=== PATIENT | female | born 2000 | race Two or more races ===

== ENCOUNTER 2018-04-20 15:30 | Inpatient (IN) | payer BC, OTHER ==
[~2018-04-20] VITALS: Ht 177.8 cm; Wt 68.0 kg
--- NOTE | 2018-04-20 16:00 | NUR ---
Pre-Admission Polisher Hand encounters pt in intake office. Pt is anxious and restless. Pt endorses using multiple substances the past 1.5 months after having been to [facility] to 12/2017. Pt states she is here for to go back to [facility]. Pt endorses occasional use of Benzodiazepines, ingesting 1 mg today and 1mg yesterday, last previous use 3 weeks ago. Pt endorses drinking 6 shots of Vodka 2 a week, last used 4 days ago. Endorses 30mg of Oxycodone 1 to 2 a week, last used 7.5mg, this am. Endorses the use of Cocaine, with ingestion of 3.0 grams over the past month, with 1.0 g consumed last evening. Pt also endorses use of LSD and Ecstasy last Monday evening. Pt will be admitted for medical management of withdrawal symptoms.
[2018-04-20] MEDS ORDERED: THIAMINE HCL 200 MG/2 ML VIAL IM ONE (16:45)
[2018-04-20] MEDS ORDERED: diphenhydrAMINE 50 MG CAPSULE PO PRN (16:45)
[2018-04-20] MEDS ORDERED: LORAZEPAM 1 MG TABLET PO PRN ×2 (16:45)
[2018-04-20] MEDS ORDERED: IBUPROFEN 600 MG TABLET PO PRN (16:45)
[2018-04-20] MEDS ORDERED: HYDROXYZINE PAMOATE 25 MG CAPSULE PO PRN (16:45)
[2018-04-20] MEDS ORDERED: ACETAMINOPHEN 325 MG TABLET PO PRN (16:45)
--- NOTE | 2018-04-20 17:05 | NUR ---
Admission Pt is admitted to unit for medical management of poly-substance withdrawals. Pt endorses occasional use of Benzodiazepines, ingesting 1 mg today and 1mg yesterday, last previous use 3 weeks ago. Pt endorses drinking 6 shots of Vodka 2 a week, last used 4 days ago. Endorses 30mg of Oxycodone 1 to 2 a week, last used 7.5mg, this am. Endorses the use of Cocaine(inhaled), with ingestion of 3.0 grams over the past month, with 1.0 g consumed last evening. Pt also endorses use of LSD and Ecstasy last Monday evening. Pt drug screen is positive for Benzodiazepines, Marijuana and Cocaine. Helix Coil Winder re-verified the amounts and frequency of all substances. Pt presents anxious, but cooperative and able to focus on task. Pt in no distress. No signs or symptoms associated with withdrawal evident. Pt states she went to [facility] eating disorder clinic in [place], where she then transitioned to [facility]. Pt originally lived in [facility] and then moved in with her dad. Pt left [place], where dad lived and transitioned to [place] where pt has been [employer] surfing. Pt states this is her second time trying to get sober. 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 Pt states, "lately I have been binging and purging, not restricting." Pt states she binges and purges 5 times a week. Pt has a history of intentional overdose at age 15, resulting in a seizure and a psychiatric hold of a minor. Pt has also been on 5149's as a n adult, the last for being a DTS in 11/2017. The other was previous to this was, " meth induced psychosis." Pt states, " I don't get any real withdrawal symptoms, you know trouble sleeping, anxiety and depression." Pt states she uses substances, "to pass the time." She states she wants to get sober, "because my life is unmanageable, I won't be happy this way for the rest of my life." Pt identifies relationships, "new relationships" for her triggers to relapse. Pt endorses a history of blacking out. Pt currently denies SI/HI or A/VH. Pt is calm and cooperative on admission interview. Pt has a linear thought process with clear speech pattern. Will continue to monitor, support and encourage according to plan of care. Addendum: 04/20/18 at 1834 by SYED COPPOLA RN VIANEY" VS on pre-assessment were as follows BP: 113/59 P: 94 R: 18 O2: 98% P: 0/10 Pt denies any PCP, psychologist or psychiatrist.
[2018-04-20 17:07] LABS: *URINE HCG, QUAL NEGATIVE (NEGATIVE)
[2018-04-20 17:10] LABS: BASOPHILS # (AUTO) 0.1 K/uL (0.0-8.0); BASOPHILS % (AUTO) 0.9 % (0.0-2.0); EOSINOPHILS # (AUTO) 0.6 K/uL (0.0-0.7); EOSINOPHILS % (AUTO) 7.2 % (0.0-7.0); HEMATOCRIT 41.5 % (31.2-41.9); HEMOGLOBIN 13.6 g/dL (10.9-14.3); LYMPHOCYTES # (AUTO) 2.8 K/uL (20.0-40.0); LYMPHOCYTES % (AUTO) 31.6 % (20.5-74.5); MEAN CORPUSCULAR HEMOGLOBIN 28.6 uug (24.7-32.8); MEAN CORPUSCULAR HGB CONC 33 g/dL (32.3-35.6); MEAN CORPUSCULAR VOLUME 87.6 fL (75.5-95.3); MONOCYTES # (AUTO) 0.8 K/uL (2.0-10.0); MONOCYTES % (AUTO) 9.2 % (0-11); NEUTROPHILS # (AUTO) 4.5 K/uL (1.8-8.9); NEUTROPHILS % (AUTO) 51.1 % (31.5-64.5); PLATELET COUNT (AUTO) 221 K/uL (179-408); RED BLOOD CELL COUNT(AUTO) 4.74 MIL/uL (3.63-4.92); WHITE BLOOD COUNT (AUTO) 8.9 K/uL (3.8-11.8)
[2018-04-20 17:20] LABS: ALANINE AMINOTRANSFERASE 26 U/L (14-59); ALKALINE PHOSPHATASE 68 U/L (50-136); ASPARTATE AMINOTRANSFERASE 17 U/L (15-37); BILIRUBIN,TOTAL 0.2 mg/dL (0.2-1.0); CARBON DIOXIDE 30 mmol/L (21-32); CHLORIDE 107 mmol/L (98-107); CREATININE 0.9 mg/dL (0.6-1.3); GLUCOSE 121 mg/dL (74-106); POTASSIUM 3.6 mmol/L (3.5-5.1); TOTAL PROTEIN, SERUM 7.5 g/dL (6.4-8.2); UREA NITROGEN, BLOOD 10 mg/dL (7-18)
[2018-04-20 17:26] LABS: ETHANOL < 3 MG/DL (0-0)
[2018-04-20 17:26] LABS: *AMPHETAMINE, URINE NEGATIVE (NEGATIVE); *BARBITURATE, URINE NEGATIVE (NEGATIVE); *CANNABINOID, URINE POSITIVE (NEGATIVE); *COCCAINE, URINE POSITIVE (NEGATIVE); *OPIATE, URINE NEGATIVE (NEGATIVE); *PHENCYCLIDINE SCREEN,URINE NEGATIVE (NEGATIVE)
--- NOTE | 2018-04-20 19:10 | NUR ---
End of Shift Manager Transmission admitted 17 year old female to [facility] this afternoon for poly-substance withdrawals. Pt endorses allergies to aloe vera and bee pollen. No PMH, with a PPH of depression, anxiety and eating DO. Pt presented with no evident signs or symptoms of withdrawals. No CIWA/COWS performed. Pt is calm and cooperative with a normal affect and depressed mood. Linear thought process with clear speech pattern. Bed in low position with wheels locked and side rails up x2.
--- NOTE | 2018-04-20 19:10 | NUR ---
End of Shift Coroner Forensic Technician admitted 17 year old female to [facility] this afternoon for poly-substance withdrawals. Pt endorses allergies to aloe vera and bee pollen. No PMH, with a PPH of depression, anxiety and eating DO. Pt presented with no evident signs or symptoms of withdrawals. No CIWA/COWS performed. Pt is calm and cooperative with a normal affect and depressed mood. Linear thought process with clear speech pattern. Bed in low position with wheels locked and side rails up x2.
[2018-04-20 20:00] VITALS: BP 90/44
--- NOTE | 2018-04-20 20:00 | NUR ---
Start of Shift Patient asleep on bed, arousable to name, AAOx4 and with flushed skin. Patient noted to have a blunted affect, poor memory and is delayed in responding to questions. Patient verbalized that her head feels heavy and wants to go back to sleep. Patient clarified that she drinks Vodka 3-4 times per week, consuming about 350-375 ml each time. Patient is avoiding eye contact at this time and with lack of motivation for discussion of plan of care. Fall, universal, seizure and safety precautions in place. Call light within reach. Latest COWS-6, CIWA-9. Will continue to monitor.
[2018-04-21] VITALS: BP_SYST 102; BP_SYST 96; BP_DIAS 53; BP_DIAS 62
[2018-04-21 04:00] VITALS: BP 96/62
--- NOTE | 2018-04-21 07:17 | NUR ---
End of Shift Patient continues to be drowsy, arousable and noted to be intermittently anxious. Patient observed to have flushed skin, with slight tremors and with intermittent nausea. Patient has blunted affect and is labile. Fall, universal, seizure and safety precautions in place. Call light within reach. Latest COWS-6, CIWA-7, slept for 11 hours. Endorsed to AM shift nurse for continuity of care.
--- NOTE | 2018-04-21 07:48 | NUR ---
Patient 17 y/o female admitted for medically supervised withdrawal of benzos, ETOH, opiates, cocaine, and marijuana. Her last COWS 6 and CIWA 7 at 2000. Pt presents with moderate anxiety, mild agitation, restless, flushed face, sweating and chills, fine tremors, head ache and stuffy nose. Pt has blunt and flat affect and depressed mood. Encouraged pt to attend group therapies/sessions to learn new coping skills to prevent relapse. Pt reports allergies to aloe vera and bee venom. FULL CODE. All safety precautions in place. Call light within reach. Bed lowest lock position. Fall precautions. Will continue to monitor for withdrawal symptoms.
[2018-04-21 08:00] VITALS: BP 101/48
--- NOTE | 2018-04-21 08:38 | NUR ---
PRN MOTRIN 600 MG PO FOR HEADACHE #4/10
--- NOTE | 2018-04-21 08:47 | NUR ---
TB TEST ADMINISTERED LEFT FOREARM
[2018-04-21] MEDS ORDERED: THIAMINE HCL 100 MG TABLET PO SCH (09:00)
[2018-04-21] MEDS ORDERED: FOLIC ACID 1 MG TABLET PO SCH (09:00)
[2018-04-21] MEDS ORDERED: TUBERCULIN,PURIF.PROT.DERIV. 5 TU/0.1 ML TEST ID ONE (09:00)
[2018-04-21] MEDS ORDERED: MULTIVITAMINS,THERAPEUTIC TABLET PO SCH (09:00)
--- NOTE | 2018-04-21 09:40 | NUR ---
REASSESS MOTRIN- PT REPORTS HEADACHE RESOLVED, PAIN NOW 0/10. MEDICATION EFFECTIVE.
[2018-04-21] MEDS ORDERED: LITHIUM CARBONATE 300 MG TABLET PO SCH (11:15)
[2018-04-21] MEDS ORDERED: ARIPIPRAZOLE 2 MG TABLET PO SCH (11:15)
[2018-04-21 12:00] VITALS: BP 115/72
[2018-04-21 16:00] VITALS: BP 108/69
--- NOTE | 2018-04-21 16:11 | NUR ---
Discharge Note Pt has been discharge from [facility]. Pt is in stable condition, VS WNL. Denies suicidal or homicidal ideations at this time. All documentation has been completed, paperwork signed and dated. Pt left will all her belongings and prescriptions. Pt has been discharged from [facility] on 04/21/18 at 1611. notified.
[2018-04-24 06:07] LABS: HEPATITIS B SURFACE AG Negative (Negative)
== END 2018-04-21 16:11 | disposition other institution (70) | DRG 895 ==
LOC: SRC 15:46
PROVIDERS: ADMIT Family Medicine Addiction Medicine; ATTEND Family Medicine Addiction Medicine
PROC: HZ2ZZZZ Detoxification Services for Substance Abuse Treatment (ICD-10-PCS; principal; 2018-04-20)
PROC: HZ41ZZZ Group Counseling for Substance Abuse Treatment, Behavioral (ICD-10-PCS; 2018-04-21)
DX: F13.239 Sedative, hypnotic or anxiolytic dependence with withdrawal, unspecified (principal); F50.2 Bulimia nervosa; F14.229 Cocaine dependence with intoxication, unspecified; Z81.8 Family history of other mental and behavioral disorders; F32.9 Major depressive disorder, single episode, unspecified; Z91.5 Personal history of self-harm; G47.00 Insomnia, unspecified; F17.210 Nicotine dependence, cigarettes, uncomplicated; F12.90 Cannabis use, unspecified, uncomplicated; F11.23 Opioid dependence with withdrawal
CPT/HCPCS: 70030-TC; 80307; 80346; 80349; 80353; 83735; 84703; 85025; 86580; 86592; 86705; 86803; 87340; 87806; A4663; G0480

== ENCOUNTER 2018-08-01 12:44 | Inpatient (IN) | payer BC, OTHER ==
[~2018-08-01] VITALS: Ht 177.8 cm; Wt 69.9 kg
--- NOTE | 2018-08-01 13:15 | NUR ---
Pre-Admission Coordinator Integrated Marketing encounters pt in intake office. Pt is calm and cooperative. A/O x4 and makes needs known. Pt endorse poly-substance abuse and is requesting to be admitted to [facility]. Pt's VS are stable. Pt with a history of Ketamine, Yelena, Oxycontin and Cocaine use.
--- NOTE | 2018-08-01 14:03 | NUR ---
Admission VS: BP 107/58, P 102, R 18, T 98.6, O2 94% PCP: Dr. Johan Barbosa of [place], [place] Psychiatrist: Dr. Morton of [facility] Substance Use Hx: Ketamine: 1 line about 3 inches long. X1 use yesterday Yelena: Has used 8x in her lifetime with last use 7/10 of a point, I believe a point is 100mg. last used yesterday Oxycontin: 20mg x1 use within last month, last used yesterday Cocaine: x1 use within last 2 weeks. 0.6 grams used this morning via inhalation Pt is admitted to [facility] for medical management of poly-substance withdrawals at 1403. Pt is admitted via ambulation, skin/safety check performed by KALA Jay with skin intact, per report. Pt is A/O x4 and able to make needs known. Pt is calm and cooperative with a flat affect and depressed mood. Pt with a normal thought process and clear speech pattern. Pt states she is feeling, good, with no signs or symptoms of withdrawal noted. When assessed for intoxification, pt states, I do not feel high now. Pt endorses last use at 0945 this am. Track Moving Machine Operator performs CIWA assessment per order with a score of 3, due to anxiety and restlessness. Pt endorses first experimenting with ETOH at age 11. I started experimenting at 13, and it really took off at 15. Pt endorses 5 previous treatments, but only endorses 2 attempts at sobriety. Pts alst treatment was in [place], [place] at [facility]. Pt stayed for 60 days and remained sober for 5 months. Pt is currently at [facility] since 04/21/18 and relapsed 2 weeks ago, after 90 days of sobriety. Pt lacks insight into illness and has a cavalier attitude toward her substance use. Pt endorses first using drugs because of depression and it was around. Pt shows some insight into triggers, identifying old friends and success as her triggers. Pt believes her barriers involve her, not knowing about being sober the rest of my life. Pt endorses consequences related to finances and relationships associated with her drug use. Pt denies any PMH, but endorses PPH of depression and anxiety. Pt endorses being diagnosed with depression at age 10. Pt currently taking Cymbalta, Abilify, Vistaril and Zeke. Pt endorses a history of SA at age 15 by overdose of prescribed medications. Pt was treated in ER and placed on a 72 hour mental health detainment for minors. Pt also endorses endorse one other 5150 and one other involuntary psychiatric hospitalization. When asked about SI, pt stated, I would never kill myself now, but I do like the idea of it. Pt states that only concern for her parents and the aftermath prevents pt from harming self. Pt denies any current intent or plan. Pt denies A/VH. Pt has been educated on admission educational material, signed all appropriate paperwork and has been oriented to un it and room. Will continue to monitor, support and encourage according to plan of care.
[2018-08-01 14:18] LABS: *URINE HCG, QUAL NEGATIVE (NEGATIVE)
[2018-08-01 14:34] LABS: *AMPHETAMINE, URINE NEGATIVE (NEGATIVE); *BARBITURATE, URINE NEGATIVE (NEGATIVE); *CANNABINOID, URINE POSITIVE (NEGATIVE); *COCCAINE, URINE POSITIVE (NEGATIVE); *OPIATE, URINE NEGATIVE (NEGATIVE); *PHENCYCLIDINE SCREEN,URINE NEGATIVE (NEGATIVE)
[2018-08-01] MEDS ORDERED: ONDANSETRON 4 MG/2 ML VIAL IM PRN (15:30)
[2018-08-01] MEDS ORDERED: CLONIDINE HCL 0.1 MG TABLET PO PRN (15:30)
[2018-08-01] MEDS ORDERED: MAGNESIUM HYDROXIDE 30 ML LIQUID UDC PO PRN (15:30)
[2018-08-01] MEDS ORDERED: IBUPROFEN 400 MG TABLET PO PRN (15:30)
[2018-08-01] MEDS ORDERED: LORAZEPAM 1 MG TABLET PO PRN ×2 (15:30)
[2018-08-01] MEDS ORDERED: THIAMINE HCL 200 MG/2 ML VIAL IM ONE (15:30)
[2018-08-01] MEDS ORDERED: MAG HYDROX/AL HYDROX/SIMETH 30 ML LIQUID UDC PO PRN (15:30)
[2018-08-01] MEDS ORDERED: LOPERAMIDE HCL 2 MG CAPSULE PO PRN ×2 (15:30)
[2018-08-01] MEDS ORDERED: LORAZEPAM 2 MG/1 ML VIAL IM PRN (15:30)
[2018-08-01] MEDS ORDERED: HYDROXYZINE PAMOATE 25 MG CAPSULE PO PRN (15:30)
[2018-08-01] MEDS ORDERED: ONDANSETRON ODT 4 MG TAB.RAPDIS SL PRN (15:30)
[2018-08-01] MEDS ORDERED: diphenhydrAMINE 50 MG CAPSULE PO PRN (15:30)
[2018-08-01] MEDS ORDERED: ACETAMINOPHEN 325 MG TABLET PO PRN (15:30)
[2018-08-01 15:32] LABS: *URINE HCG, QUAL NEGATIVE (NEGATIVE)
[2018-08-01 16:00] VITALS: BP 113/65
[2018-08-01] MEDS ORDERED: HYDR50CA5 PO (16:00)
[2018-08-01] MEDS ORDERED: DULO60CA45 PO (16:00)
[2018-08-01] MEDS ORDERED: ARIP5TAB10 PO (16:00)
[2018-08-01 18:34] LABS: BASOPHILS # (AUTO) 0.1 K/uL (0.0-8.0); BASOPHILS % (AUTO) 0.7 % (0.0-2.0); EOSINOPHILS # (AUTO) 0.3 K/uL (0.0-0.7); EOSINOPHILS % (AUTO) 3.5 % (0.0-7.0); HEMATOCRIT 39.5 % (31.2-41.9); HEMOGLOBIN 13.4 g/dL (10.9-14.3); LYMPHOCYTES # (AUTO) 2.7 K/uL (20.0-40.0); MEAN CORPUSCULAR HEMOGLOBIN 30.1 uug (24.7-32.8); MEAN CORPUSCULAR HGB CONC 34 g/dL (32.3-35.6); MEAN CORPUSCULAR VOLUME 88.6 fL (75.5-95.3); MONOCYTES # (AUTO) 0.7 K/uL (2.0-10.0); MONOCYTES % (AUTO) 8.2 % (0-11); NEUTROPHILS % (AUTO) 56.6 % (31.5-64.5); PLATELET COUNT (AUTO) 236 K/uL (179-408); RED BLOOD CELL COUNT(AUTO) 4.46 MIL/uL (3.63-4.92); WHITE BLOOD COUNT (AUTO) 8.8 K/uL (3.8-11.8)
[2018-08-01 18:46] LABS: ETHANOL < 3 MG/DL (0-0)
[2018-08-01 18:48] LABS: ALANINE AMINOTRANSFERASE 29 U/L (14-59); ALKALINE PHOSPHATASE 57 U/L (50-136); ASPARTATE AMINOTRANSFERASE 15 U/L (15-37); BILIRUBIN,TOTAL 0.4 mg/dL (0.2-1.0); CARBON DIOXIDE 30 mmol/L (21-32); CHLORIDE 103 mmol/L (98-107); CREATININE 0.8 mg/dL (0.6-1.3); GLUCOSE 85 mg/dL (74-106); POTASSIUM 4.1 mmol/L (3.5-5.1); TOTAL PROTEIN, SERUM 7.5 g/dL (6.4-8.2); UREA NITROGEN, BLOOD 8 mg/dL (7-18)
--- NOTE | 2018-08-01 18:56 | NUR ---
START OF SHIFT NOTE: Presented patient is a 18 year female admitted today for Ketamine, Yelena, Oxycontin, and Cocaine withdrawal. PRN medications ordered. Patient is alert and oriented x4, calm, cooperative, with stable gait, and clear soft speech. Patient reported allergy to [place] Squash, aloe vera, bee venom protein (honey bee), and Regular diet. She is on Full Code, fall and seizures precautions. Patient reports PMH: Anxiety, Depression, Seizure history r/t OD at age 15 in 2015, and x2-5150. In 2015. The most recent CIWA=3: Patient noted anxious, agitated, nervousness, and with not visible bilateral tremors, that can be felt but not observe. VSWNL. Respirations are even and unlabored. Abdomen is soft and non-tender, bowel sounds are active in all four quadrants. Skin is intact, warm, and dry to touch. Encouraged to intake fluids as tolerated. No PRN Medications administrated during day shift, per day shift nurse report. Encouraged to attend group activates. Safe and calm environment provided. All needs met. Safety measures in place: Call light within reach, bed is locked in the lowest position, padded bed rails up bilaterally. Endorsed by outgoing day shift nurse. Will continue to monitor.
--- NOTE | 2018-08-01 18:56 | NUR ---
End of Shift Outcomes Specialist provided report on 18 year old female [facility] for medical management of poly-substance withdrawals. Pt endorses allergies to [place] Squash, Aloe Vera, and Bee Venom, full code and regular diet. Pt denies any PMH, with a PPH of depression. Pt has PRN medications available, with an initial CIWA of 3. Pt has been calm and cooperative and makes needs known. Pt has rested since admit. Bed in low position with wheels locked and side rails up x2.
[2018-08-01 20:00] VITALS: BP 91/54
[2018-08-02] VITALS: BP 91/51
--- NOTE | 2018-08-02 04:00 | NUR ---
VS REFUSED, CIWA DEFERRED VS refused and CIWA deferred for sleep. Patient will be assessed when patient is awake. Respirations are unlabored and even. RR=15. Safe and calm environment provided. All needs met. Safety measures in place: Call light within reach, bed is locked in the lowest position, and padded bed rails up bilaterally. Will continue to monitor.
--- NOTE | 2018-08-02 06:53 | NUR ---
END OF SHIFT NOTE: Patient is alert and oriented x4, cooperative, with mild withdrawal symptoms. Patient mood is anxious and depressive/flat affect. The most recent CIWA=7 at 0000: Patient experienced anxiety, agitation, nervousness, sweating, not visible bilateral tremors, that can be felt but not observe, restlessness, and fatigue. Patient slept for 11 hours, intake 500 ml, output: Voided x1. Encouraged to intake fluids as tolerated. No PRN Medications administrated during my shift, per day shift nurse report. Encouraged to attend group activates. Safe and calm environment provided. All needs met. Safety measures in place: Call light within reach, bed is locked in the lowest position, padded bed rails up bilaterally. Endorsed to day shift nurse.
[2018-08-02 08:00] VITALS: BP 95/51
--- NOTE | 2018-08-02 08:00 | NUR ---
Start of Shift Notes/CIWA Assessment: Received endorsement from night nurse. Patient is a 18 year old female admitted for ketamine and opiate withdrawal who was placed on PRNs. Discharge pending. According to night report, patient was not given any PRNs. Slept for 11 hours. Last CIWA 7 at 0000. Received patient in her room. Alert and oriented x 4. Appears worried, anxious and agitated due to wanting to go smoke. Educated patient on the smoking policy of the unit and verbalized good understanding. She complains of intermittent perspiration and generalized discomfort. CIWA 7. Educated patient on her current plan of care for the day and his medication regimen. Encouraged oral fluid intake and encouraged group participation to learn new skills to prevent relapse. All needs met and attended. Will continue to monitor closely.
[2018-08-02] MEDS: MULTIVITAMINS,THERAPEUTIC TABLET PO SCH (08:20)
[2018-08-02] MEDS: THIAMINE HCL 100 MG TABLET PO SCH (08:20)
[2018-08-02] MEDS: FOLIC ACID 1 MG TABLET PO SCH (08:20)
[2018-08-02] MEDS ORDERED: TUBERCULIN,PURIF.PROT.DERIV. 5 TU/0.1 ML TEST ID ONE (09:00)
[2018-08-02 12:00] VITALS: BP 100/62
--- NOTE | 2018-08-02 12:06 | NUR ---
CIWA Assessment: CIWA 6, patient continues to present with gross tremors, intermittent perspiration, anxiety, agitation and generalized discomfort. Will continue to monitor.
--- NOTE | 2018-08-02 12:06 | NUR ---
Therapist prompted client to attend group therapy sessions.
[2018-08-02 16:00] VITALS: BP 101/62
--- NOTE | 2018-08-02 16:25 | NUR ---
CIWA Assessment: CIWA 6, patient continues to present with gross tremors, diaphoresis, anxiety, agitation and generalized discomfort. Patient will be discharging tomorrow ans was able to participate in group and activities. Will continue to monitor.
--- NOTE | 2018-08-02 18:55 | NUR ---
START OF SHIFT NOTE: Report received for patient, 18 year female, presented for Ketamine, Yelena, Oxycontin, and Cocaine withdrawal. PRN medications ordered. Patient is alert and oriented x4, noted with flat affect and anxious mood. The latest CIWA=6 at 1603: Throughout the day shift patient noted anxious, agitated, nervousness, with not visible bilateral tremors, that can be felt but not observe, sweating. Restlessness, and fatigue. VSWNL. Skin is intact, warm, and dry to touch. Encouraged to intake fluids as tolerated. No PRN Medications administrated during day shift. Patient attended group activates. Patient scheduled for discharge tomorrow to "[facility]". Safe and calm environment provided. All needs met. Safety measures in place: Call light within reach, bed is locked in the lowest position, padded bed rails up bilaterally. Endorsed by outgoing day shift nurse. Will continue to monitor.
--- NOTE | 2018-08-02 18:55 | NUR ---
End of Shift Notes: Patient continues to be on PRNs to manage symptoms related to ketamine and opiate withdrawal. VS monitored closely. No significant abnormalities noted. Withdrawal symptoms were closely monitored. Initial CIWA 7, patient presented with generalized discomfort, anxiety, fatigue, difficulty concentrating, irritability and diaphoresis. Last CIWA 6. Patient will be discharging tomorrow to [facility]. Able to participate in group and activities despite her withdrawal symptoms. Appetite good. All needs met and attended. Will continue to monitor closely.
[2018-08-02 20:00] VITALS: BP 111/71
--- NOTE | 2018-08-02 20:00 | NUR ---
CIWA ASSESSMENT CIWA=10. Patient appears anxious, agitated, irritated, nervousness, with not visible bilateral tremors, that can be felt but not observe, sweating. Restlessness, and fatigue. PRN Medications discussed with patient, and will be administered for anxiety and agitation, as ordered. Safe and calm environment provided. All needs met. Safety measures in place: Call light within reach, bed is locked in the lowest position, padded bed rails up bilaterally. Endorsed by outgoing day shift nurse. Will continue to monitor.
--- NOTE | 2018-08-02 21:12 | NUR ---
PRN BENADRYL PO AND PRN CLONIDINE PO ADMINISTRATION PRN Benadryl 50 mg PO administered at 2110 for insomnia, and PRN Clonidine 0.1 mg PO administered for anxiety and agitation at 2111, as ordered. Patient tolerated well. Encouraged to intake fluids as tolerated. Re-assessment will be done in one hour. Safe and calm environment provide. All needs met. Safety measures in place: Call light within reach, bed is in lowest position and locked, and padded bed rails up x2. Will continue to monitor closely.
--- NOTE | 2018-08-02 22:12 | NUR ---
PRN RE-ASSESSMENT Patient is sleeping on her side. RR=14. Respirations are even and unlabored PRN Benadryl 50 mg PO administered at 2110 for insomnia, PRN Clonidine 0.1 mg PO administered for anxiety and agitation at 2111 were effective. Safe and calm environment provide. All needs met. Safety measures in place: Call light within reach, bed is in lowest position and locked, padded bed rails up x2. Will continue to monitor closely.
--- NOTE | 2018-08-03 | NUR ---
VS REFUSED, CIWA DEFERRED VS refused and CIWA deferred for sleep. Patient will be assessed when patient is awake. Respirations are unlabored and even. RR=14. Safe and calm environment provided. All needs met. Safety measures in place: Call light within reach, bed is locked in the lowest position, and padded bed rails up bilaterally. Will continue to monitor.
--- NOTE | 2018-08-03 04:00 | NUR ---
VS REFUSED, CIWA DEFERRED VS refused and CIWA deferred for sleep. Patient will be assessed when patient is awake. Respirations are unlabored and even. RR=16. Safe and calm environment provided. All needs met. Safety measures in place: Call light within reach, bed is locked in the lowest position, and padded bed rails up bilaterally. Will continue to monitor.
[2018-08-03 07:06] LABS: HEPATITIS B SURFACE AG Negative (Negative)
--- NOTE | 2018-08-03 07:12 | NUR ---
END OF SHIFT NOTE: Endorsed patient, 18 year female, presented for Ketamine, Yelena, Oxycontin, and Cocaine withdrawal. The patient scheduled for discharge to "[facility]" today at 0930. The most recent CIWA=10 at 1999: Throughout the day shift patient noted anxious, agitated, nervousness, with not visible bilateral tremors, that can be felt but not observe, sweating, and restlessness. VS refused and CIWA deferred at 0000 and 0400 for sleep. PRN Benadryl 50 mg PO administered at 2110 for insomnia, PRN Clonidine 0.1 mg PO administered for anxiety and agitation at 2111, and were effective. Patient slept for 7 hours, intake 958 ml, and voided x3. Encouraged to intake fluids as tolerated. Encouraged to attend group activities. Safe and calm environment provide. All needs met. Safety measures in place: Call light within reach, bed is in lowest position and locked, padded bed rails up x2. Endorsed to day shift nurse.
--- NOTE | 2018-08-03 07:30 | NUR ---
Start Of Shift Patient is a 18 yr old female who was admitted to [facility] on 08/01/18 for a medically supervised withdrawal from Ketamine/Yelena and Opiates and also stated she used Cocaine, she has been on PRN medication and will be discharged today. PRN Benadryl and Clonidine was given on PM shift, she slept for 7 hrs and last CIWA was 10. Currently she is awake and voiced no concerns. Continue to follow MD plan of care and offer support and encouragement.
[2018-08-03 08:00] VITALS: BP 106/48
--- NOTE | 2018-08-03 08:00 | NUR ---
CIWA 9 patient presents with fine hand tremors, increased anxiety and decreased appetite No PRN medications required or requested
[2018-08-03] MEDS: FOLIC ACID 1 MG TABLET PO SCH (08:33)
[2018-08-03] MEDS: MULTIVITAMINS,THERAPEUTIC TABLET PO SCH (08:33)
[2018-08-03] MEDS: THIAMINE HCL 100 MG TABLET PO SCH (08:33)
--- NOTE | 2018-08-03 09:37 | NUR ---
Discharge Note All DC paperwork signed and dated, all valuables and personal belongings placed in zip tied bag, patient ambulated off the unit and was picked up by private car for transport to " [facility] ".
== END 2018-08-03 09:37 | disposition other institution (70) | DRG 895 ==
LOC: SRC 13:22
PROVIDERS: ADMIT Family Medicine Addiction Medicine; ATTEND Family Medicine Addiction Medicine
PROC: HZ2ZZZZ Detoxification Services for Substance Abuse Treatment (ICD-10-PCS; principal; 2018-08-01)
PROC: HZ41ZZZ Group Counseling for Substance Abuse Treatment, Behavioral (ICD-10-PCS; 2018-08-02)
DX: F10.230 Alcohol dependence with withdrawal, uncomplicated (principal); F11.23 Opioid dependence with withdrawal; F13.230 Sedative, hypnotic or anxiolytic dependence with withdrawal, uncomplicated; F41.1 Generalized anxiety disorder; F14.10 Cocaine abuse, uncomplicated; Z81.8 Family history of other mental and behavioral disorders; Z91.030 Bee allergy status; Z91.018 Allergy to other foods; F50.9 Eating disorder, unspecified; F41.9 Anxiety disorder, unspecified; F32.9 Major depressive disorder, single episode, unspecified; F12.90 Cannabis use, unspecified, uncomplicated
CPT/HCPCS: 36415; 80307; 80349; 80353; 83735; 84703; 85025; 86580; 86592; 86705; 86803; 87340; 87806; G0480; Q0163